=== PATIENT | male | born 1980 | race African-American/Black ===

== ENCOUNTER 2019-08-22 11:32 | Emergency (ER) | payer MEDICAID ==
[~2019-08-22] VITALS: Ht 182.9 cm; Wt 181.8 kg
[~2019-08-22 11:32] MED LIST: ALBU6.7H; BECL8.7A5; CHLO25TA27; NORVASC
[2019-08-22] MEDS ORDERED: KETOROLAC 30MG/ML VIAL IM ONE (12:00)
[2019-08-22] MEDS ORDERED: HYDROCODONE/ACETAMINOPHEN 5/325MG TABLET PO ONE (13:15)
[2019-08-22 13:46] VITALS: BP 146/78
== END 2019-08-22 13:47 | disposition home or self-care (01) ==
LOC: ER 11:32
DX: S99.911A Unspecified injury of right ankle, initial encounter (principal); W01.0XXA Fall on same level from slipping, tripping and stumbling without subsequent striking against object, initial encounter; Y93.89 Activity, other specified; Y92.89 Other specified places as the place of occurrence of the external cause
CPT/HCPCS: 29515; 73610; 73630; 96372; 99283; J1885